=== PATIENT | female | born 1940 | race Caucasian/White ===

== ENCOUNTER 2020-07-14 15:03 | Emergency (ER) | payer BC, MEDICARE ==
[~2020-07-14] VITALS: Ht 154.9 cm; Wt 59.0 kg
[~2020-07-14 15:03] MED LIST: ACETAMINOPHEN325 M1 ORAL; ANTIVERT25 MG ORAL; ASPIR 8181 MG ORAL; BENAZEPRIL HCL10 MG ORAL; BP PILL; COLACE100 MG ORAL; CULTURELLE1 EACH ORAL; D3 + K2 DOTS 11 EACH PO; DUONEB 0.5-3(2.53 ML HHN; FISH OIL 1,2001 EAC8 PO; HYDROCODON-ACE1 EA13 ORAL; LIDODERM700 M1 TDERMAL; LIPITOR10 MG ORAL; LOTREL1 CAP ORAL; MIRALAX17 G2 ORAL; MORPHINE SU4 MG/1 ML SQ; NEXIUM40 MG ORAL; NORCO 5-325 TA1 EACH ORAL; OMEPRAZOLE40 M1 ORAL; OSCAL D500 MG ORAL; PREDNISONE20 MG ORAL; PROAIR RESPICL90 MCG IH; PROMETHAZINE-C118 M1 ORAL; RESTORIL15 MG ORAL; VITAMIN D1000 UNI1 ORAL; XANAX0.5 MG ORAL; ZITHROMAX250 MG ORAL
[2020-07-14 15:16] VITALS: BP 152/71
[2020-07-14] MEDS ORDERED: Methocarbamol 750mg tab ORAL ONE (15:45)
--- NOTE | 2020-07-14 15:49 | Emergency Room Report ---
History of Present Illness General Chief Complaint: Back Pain-No Injury Present Illness HPI 80-year-old female with history of lumbar compression fractures presents to the emergency department complaining of 10 out of 10 severity low back pain that originates in the middle of her lower back progressive since yesterday. Patient reports she was diagnosed with compression fractures several years ago. She states that her symptoms today are not consistent with those that she has had associated with previous findings. Patient reports pain with any attempts to bend, sit up or turn. Patient reports pain is exacerbated upon weightbearing/ambulating. Patient reports some relief of her pain with laying flat however she reports constant dull ache is always there. Pt. is concerned there may be worsening of her previous injuries. Denies numbness tingling or loss of sensation or gross motor movements of the extremities, incontinence of bowel or bladder. Denies CP, Palpitations, LOC, AMS, dizziness, Changes in Vision, weakness or a sudden severe headache. She reports she sees a stock handler floorperson regularly and had a normal checkup 4 weeks ago. She denies trauma or fall. She denies dysuria, hematuria or urinary frequency. She denies abdominal pain or tenderness. She denies neck pain/stiffness. She denies recent spinal procedures or hx of cancer. Denies night sweats, fevers or chills. Pmhx : degenerative spine, COPD, HTN, and compression fractures with chronic pain. Not in pain management, and not taking opiate pain medications. Allergies: Coded Allergies: No Known Allergies (Unverified , 02/20/14) COVID-19 Screening Contact w/high risk pt: No Experienced COVID-19 symptoms?: No COVID-19 Testing performed CONVENTION SERVICES DIRECTOR: No Patient History Past Medical History: see triage record Past Surgical History: none Pertinent Family History: none Now: No Reviewed Nursing Documentation: PMH: Agreed; PSxH: Agreed Nursing Documentation-PMH Hx Cardiac Problems: Yes - ARRYTHMIA Hx Hypertension: Yes Hx COPD: Yes Hx Cancer: Yes Hx Gastrointestinal Problems: Yes - GERD Hx Neurological Problems: No Hx Seizures: No Review of Systems All Other Systems: negative except mentioned in HPI Physical Exam Vital Signs Date Time Temp Pulse Resp B/P (MAP) Pulse Ox O2 Delivery O2 Flow Rate FiO2 07/14/20 14:54 98.8 100 18 150/77 (101) 98 Room Air Sp02 EP Interpretation: reviewed, normal General Appearance: no apparent distress, alert, GCS 15, non-toxic Head: normocephalic, atraumatic Eyes: bilateral eye normal inspection, bilateral eye PERRL ENT: hearing grossly normal, normal voice Neck: full range of motion Respiratory: chest non-tender, lungs clear, normal breath sounds, speaking full sentences Cardiovascular #1: regular rate, rhythm, no edema, normal capillary refill Cardiovascular #2: 2+ dorsalis pedis (R), 2+ dorsalis pedis (L) Gastrointestinal: normal bowel sounds, non tender, soft, non-distended, no guarding, no pulsatile mass Genitourinary: normal inspection, no CVA tenderness Musculoskeletal: back normal, no calf tenderness, gait/station normal - with some pain, no need for assistance. , tender - Pt. has TTP midline in the upper Lumbar spinal area and the lower portion midline. No significant paraspinal TTP, No localized spinous process ttp. no palpable step off. , other - Decreased ROM and ambultation secondary to pain. no muscle weakness. Neurologic: alert, motor strength/tone normal, oriented x3, sensory intact, responsive, speech normal Psychiatric: judgement/insight normal Lymphatic: no adenopathy Medical Decision Making PA Attestation Dr. Sifuentes Is my supervising Physician whom patient management has been discussed with. Diagnostic Impression: Primary Impression: T12 compression fracture Qualified Codes: S22.080A - Wedge compression fracture of t11-T12 vertebra, initial encounter for closed fracture Additional Impressions: Lumbar degenerative disc disease Chronic back pain Qualified Codes: M54.5 - Low back pain; G89.29 - Other chronic pain ER Course 80-year-old female with history of lumbar compression fractures presents to the emergency department complaining of 10 out of 10 severity low back pain that originates in the middle of her lower back progressive since yesterday. Patient reports she was diagnosed with compression fractures several years ago. She states that her symptoms today are not consistent with those that she has had associated with previous findings. Patient reports pain with any attempts to bend, sit up or turn. Patient reports pain is exacerbated upon weightbearing/ambulating. Patient reports some relief of her pain with laying flat however she reports constant dull ache is always there. Pt. is concerned there may be worsening of her previous injuries. Denies numbness tingling or loss of sensation or gross motor movements of the extremities, incontinence of bowel or bladder. Denies CP, Palpitations, LOC, AMS, dizziness, Changes in Vision, weakness or a sudden severe headache. She reports she sees a stock handler floorperson regularly and had a normal checkup 4 weeks ago. She denies trauma or fall. She denies dysuria, hematuria or urinary frequency. She denies abdominal pain or tenderness. She denies neck pain/stiffness. She denies recent spinal procedures or hx of cancer. Denies night sweats, fevers or chills. Pmhx : degenerative spine, COPD, HTN, and compression fractures with chronic pain. Not in pain management, and not taking opiate pain medications. Ddx considered: epidural abscess, fracture, sprain/strain, meningitis, spinal chord injury, sciatica, cauda equina, Pyelonephritis, renal calculi just to name a few. Vital signs reviewed and are WNL during ED visit. Pt. is afebrile with no signs of infection No saddle anesthesia noted, No incontinence Neurovascular is intact ROM is limited due to pain ORDERS: -CT L-Spine No contrast: Worsening of T6 compression fracture. No acute changes of previous bleed diagnosed bone fragments. New onset grade 1 spondylolisthesis on L5/S1. INTERVENTIONS: - Robaxin 750 mg PO -Lidoderm TP - Tylenol PO Patient reports improvement of her pain. She is able to ambulate she reports during ambulation her pain is a 2 out of 10 in severity. Patient states medications given during ED visit have helped her significantly. I discussed with this patient the findings of her CAT scan. I also gave her a copy of her official radiology report to take with her for follow-up. I also am giving patient the office information for the spinal orthopedist that saw her several years ago here at the hospital when she was diagnosed with her compression fractures. DISCHARGE: At this time pt. is stable for d/c to home. Will provide printed patient care instructions, and any necessary prescriptions. Care plan and follow up instructions have been discussed with the patient prior to discharge. Pt. will wait in room until her son is outside to pick her up. She is ambulatory on her own with a steady gait but requests to be taken out in a wheel chair. CT/MRI/US Diagnostic Results CT/MRI/US Diagnostic Results : Imaging Test Ordered: CT L-Spine No contrast Impression " IMPRESSION: INTERVAL PROGRESSION OF T12 COMPRESSION FRACTURE NOW DEMONSTRATING VERTEBRAL PLANA MORPHOLOGY, WITH MILD RETROPULSION OF FRAGMENTS, WHICH APPEAR STABLE FROM PRIOR EXAMINATION. MULTILEVEL DISCOGENIC DEGENERATIVE DISEASE WORSE AT THE LEVEL OF L5-S1, WHERE THERE IS LIKELY MODERATE SPINAL CANAL STENOSIS AND MODERATE BILATERAL FORAMINA NARROWING. NEW GRADE 1 ANTEROLISTHESIS OF L5 ON S1 WITHOUT ASSOCIATED PARS FRACTURE." --Per official radiology report- Please see report for specific details. Last Vital Signs Date Time Temp Pulse Resp B/P (MAP) Pulse Ox O2 Delivery O2 Flow Rate FiO2 07/14/20 15:16 98.8 80 16 152/71 99 Room Air Disposition: HOME, SELF-CARE Condition: Stable Scripts Lidocaine Patch* (Lidoderm Patch*) 1 Each Adh..patch 1 PATCH TOPIC DAILY, #30 PATCH Patch(es) may remain in place for up to 12 hours in any 24-hour period. Prov: Kelly Choi 07/14/20 Acetaminophen (8Hr Arthritis Pain) 650 Mg Tablet.er 650 MG PO Q8HR, #30 TAB Prov: Kelly Choi 07/14/20 Methocarbamol* (ROBAXIN-750*) 750 Mg Tablet 750 MG PO TID, #21 TAB 0 Refills Prov: Kelly Choi 07/14/20 Patient Instructions: Back Pain, Adult, Spinal Compression Fracture Additional Instructions: Take medications as directed. !!Do not drink alcohol, drive, or operate heavy machinery while taking ROBAXIN ( Muscle Relaxer) as this may cause drowsiness. !!! Follow up with an ICT SALES ASSISTANT in 3-5 days, even if your symptoms have resolved. If symptoms persist MRI may be required at the discretion of your PCP or Ortho Specialist. --Please review list of primary care clinics, if you do not already have a primary care provider who can give you an Orthopedic Referral. Return sooner to ED if new symptoms occur, or current symptoms become worse. - Please note that this Emergency Department Report was dictated using [employer] ruby developer technology software, occasionally this can lead to erroneous entry secondary to interpretation by the dictation equipment. Kelly Choi Jul 14, 2020 15:49
--- NOTE | 2020-07-14 16:44 | Diagnostic Imaging Report ---
EXAM: CT L Spine no Contrast CLINICAL HISTORY: Reason For Exam: Back pain. TECHNIQUE: Axial images obtained through the lumbosacral spine with subsequent sagittal and coronal reformat images. All CT scans at this facility are performed using dose modulation techniques as appropriate to a performed exam including the following: automated exposure control with adjustment of the mA and/or kV according to patient size. RADIATION DOSE: CTDIvol: 9.1 mGy DLP: 303.9 mGy-cm Dose information generated by the CT scanner is available in PACS. COMPARISON: CT lumbosacral spine dated 09/05/2015 FINDINGS: Lumbar lordosis is maintained. Interval worsening of previously described T12 compression fracture, now demonstrating vertebra plana morphology. There is mild retropulsion of fragments at this level leading to likely moderate spinal canal stenosis, similar to prior examination. Again demonstrated is compression fracture of L1 with approximately 25% loss of body height, without significant change from prior examination. Interval development of grade 1 anterolisthesis of L5 on S1 without associated pars fracture. There are multilevel discogenic degenerative changes characterized by disc space narrowing, endplate aspect formation, and bilateral facet arthropathy at the levels of L4-L5 and L5-S1. Discogenic disease is worse at the level of L5-S1, where there is moderate disc bulge and likely moderate spinal canal stenosis as well as mild to moderate bilateral foraminal narrowing. Additionally, there is likely moderate spinal canal stenosis at the level of L4-L5. Incidental note is made of moderate aortoiliac there is moderate emphysema atherosclerotic calcification and there is moderate emphysema visualized lungs. IMPRESSION: INTERVAL PROGRESSION OF T12 COMPRESSION FRACTURE NOW DEMONSTRATING VERTEBRAL PLANA MORPHOLOGY, WITH MILD RETROPULSION OF FRAGMENTS, WHICH APPEAR STABLE FROM PRIOR EXAMINATION. MULTILEVEL DISCOGENIC DEGENERATIVE DISEASE WORSE AT THE LEVEL OF L5-S1, WHERE THERE IS LIKELY MODERATE SPINAL CANAL STENOSIS AND MODERATE BILATERAL FORAMINA NARROWING. NEW GRADE 1 ANTEROLISTHESIS OF L5 ON S1 WITHOUT ASSOCIATED PARS FRACTURE.
[2020-07-14] MEDS ORDERED: ROBAXIN-750750 MG PO (17:48)
[2020-07-14] MEDS ORDERED: LIDODERM700 M1 TOPIC (17:48)
[2020-07-14] MEDS ORDERED: 8HR ARTHRITIS650 MG PO (17:48)
[2020-07-14 18:00] VITALS: BP 145/75
[2020-07-16] MEDS ORDERED: ROBAXIN-750750 MG PO (20:05)
== END 2020-07-14 18:00 | disposition home or self-care (01) ==
LOC: EDBD 15:03 → EMR 15:55
DX: S22.080A Wedge compression fracture of T11-T12 vertebra, initial encounter for closed fracture (principal); M51.36 Other intervertebral disc degeneration, lumbar region; G89.29 Other chronic pain; M54.5 Low back pain; I11.9 Hypertensive heart disease without heart failure; J44.9 Chronic obstructive pulmonary disease, unspecified; Z85.9 Personal history of malignant neoplasm, unspecified
CPT/HCPCS: 72131; 99284